=== PATIENT | female | born 1950 | race Caucasian/White ===

== ENCOUNTER → 2016-09-15 | Outpatient (CLI) | payer MEDICARE, OTHER ==
[~2016-09-15] MED LIST: ASPI-482 PO; CITA20TA9 PO; DUONEB; HYDR12.58 PO; LORA10TA3 PO; MELO15TA23 PO; OMEP20CA9 PO; PROAIR HFA8.5 GM INH; PROP40TA PO; SIMV40TA3 PO
--- NOTE | 2016-09-15 12:51 | KCIC ---
EXAM: Bilateral screening mammogram. HISTORY: 66-year-old female presents for screening mammography. TECHNIQUE: Full-field digital craniocaudal and mediolateral oblique views of both breasts are obtained for evaluation. Computer aided detection with Crediter[employer] software version 9.3 was applied. COMPARISON: 04/08/2015 and 01/10/2014 BREAST PARENCHYMAL DENSITY: Level B - Scattered fibroglandular densities. FINDINGS: There is a small focal asymmetry within the retroareolar aspect of the left breast on the craniocaudal projection, without a correlate on the mediolateral oblique projection. There is nodularity within right breast which is stable compared to multiple studies. There are a few benign calcifications within both breasts. IMPRESSION: BI-RADS Category 0: Additional imaging needed. RECOMMENDATION: Further evaluation with a spot compression craniocaudal view and full field true lateral view of the left breast assess focal asymmetry is recommended. Sonographic imaging can also be performed if team indicated based on initial imaging findings. The patient will be contacted to return for additional imaging. If your mammogram demonstrates that you have dense breast tissue, which could hide abnormalities, and if you have other risk factors for breast cancer that have been identified, you might benefit from supplemental screening tests that may be suggested by your ordering physician. Dense breast tissue, in and of itself, is a relatively common condition. This information is not provided to cause undue concern, but rather to raise your awareness and to promote discussion with your physician regarding the presence of other risk factors, in addition to dense breast tissue. A report of your mammography results will be sent to you and your physician. You should contact your physician if you have any questions or concerns regarding this report. Mammography is a sensitive method for finding small breast cancers, but it does not detect them all and is not a substitute for careful clinical examination. A negative mammogram does not negate a clinically suspicious finding and should not result in delay in biopsying a clinically suspicious abnormality. PQRS compliance statement - Patient information was entered into a reminder system with a target due date for the next mammogram. "Our facility is accredited by the [employer] Mammography Program." Electronically signed by: Ramya Oneill MD (09/15/2016 12:47 PM) [id number]
== END | disposition home or self-care (01) ==
LOC: KCIC MAMMO 12:16
PROVIDERS: ATTEND Internal Medicine
DX: Z12.31 Encounter for screening mammogram for malignant neoplasm of breast (principal)
CPT/HCPCS: G0202; 77067

== ENCOUNTER → 2016-09-29 | Outpatient (CLI) | payer MEDICARE, OTHER ==
--- NOTE | 2016-10-13 15:43 | KCIC ---
DATE: 09/29/2016. EXAM: 1. DIGITAL DIAGNOSTIC LT. 2. LEFT BREAST ULTRASOUND. HISTORY: Density on mammographic screening. Additional views and sonography are requested. COMPARISON: 09/15/2016, 04/08/2015, 01/09/2014. This study was interpreted with the benefit of Computerized Aided Detection (CAD ). FINDINGS: The breast parenchyma shows scattered fibroglandular densities. The density of concern resolves to a parenchymal density on the CC spot compression image. It persists on the MLO projection. On today's sonography of the lateral subareolar region, there is no correlate for the mammographic density. There is no suspicious finding. BI-RADS CATEGORY: 3 PROBABLY BENIGN FINDING(S)-SHORT INTERVAL FOLLOW-UP SUGGESTED. RECOMMENDED FOLLOW-UP: 1. The finding of concern appears represent a parenchymal island and has no sonographic correlate. Six-month follow-up is recommended to confirm stability. 2. 6M 6 MONTH FOLLOW-UP. PQRS compliance statement: Patient information was entered into a reminder system with a target due date 04/01/2017 for the next mammogram. Mammography is a sensitive method for finding small breast cancers, but it does not detect them all and is not a substitute for careful clinical examination. A negative mammogram does not negate a clinically suspicious finding and should not result in delay in biopsying a clinically suspicious abnormality. "Our facility is accredited by the [employer] Mammography Program." MTDD
== END ==
LOC: KCIC MAMMO 08:30
PROVIDERS: ATTEND Internal Medicine
DX: N63 Unspecified lump in breast (principal)
CPT/HCPCS: 76641; G0206; 77065

== ENCOUNTER → 2017-04-03 | Outpatient (CLI) | payer OTHER | END | disposition home or self-care (01) | LOC: KCIC MAMMO 09:38 | DX: N64.89 Other specified disorders of breast (principal); R92.8 Other abnormal and inconclusive findings on diagnostic imaging of breast (principal) | CPT/HCPCS: 77065; G0279 ==

== ENCOUNTER → 2018-04-17 | Outpatient (CLI) | payer OTHER ==
[~2018-04-17] MED LIST changes: +ALBU2.5V8 INH; +OMEP20CA10 PO; -OMEP20CA9 PO; -PROAIR HFA8.5 GM INH
--- NOTE | 2018-04-17 15:47 | KCIC ---
Bilateral digital screening mammograms with 3-D tomosynthesis: Reason for examination: Routine screening. Comparison is made to previous studies dated back to 04/08/2015. Bilateral mammograms in CC and oblique projections were obtained with 2-D imaging and 3-D tomosynthesis imaging on a Siemens Inspiration unit and reviewed on the workstation. Interpretation was made with the benefit of CAD. The skin and nipples show no abnormalities. No abnormal axillary lymph nodes are seen. The breast parenchyma shows scattered fatty and fibroglandular density. (Breast density: Category B.) There appears to be interval improvement of a small nodular density seen anteriorly in the left breast. There is however continued presence of a small nodule anteriorly at the 11:00 position in the right breast as well as an additional tiny nodule at the 12:00 position of the right breast which are stable. There are no new dominant masses, suspicious calcifications or architectural distortion. Benign calcifications are present. Impression: No evidence of malignancy. Recommend routine screening. BI-RAD Category 2: Benign. "Our facility is accredited by the [employer] Mammography [employer]." This patient's information has been entered into a reminder system for the patient to be notified with the results of her examination and a target date for the next mammogram. Electronically signed by: Kelly Grier MD (04/17/2018 3:42 PM) [id number]
== END | disposition home or self-care (01) ==
LOC: KCIC MAMMO 10:14
PROVIDERS: ATTEND Internal Medicine
DX: Z12.31 Encounter for screening mammogram for malignant neoplasm of breast (principal)
CPT/HCPCS: 77063; 77067

== ENCOUNTER → 2019-04-22 | Outpatient (CLI) | payer MEDICARE, OTHER ==
[~2019-04-22] MED LIST changes: -OMEP20CA10 PO; +OMEP20CA16 PO; +SIMV40TA18 PO; -SIMV40TA3 PO
--- NOTE | 2019-04-22 16:14 | KCIC ---
Bilateral digital screening mammograms with 3-D tomosynthesis: Reason for examination: Routine screening. Comparison is made to previous studies dated back to 09/15/2016. Bilateral mammograms in CC and oblique projections were obtained with 2-D imaging and 3-D tomosynthesis imaging on a Siemens Inspiration unit and reviewed on the workstation. Interpretation was made with the benefit of CAD. The skin and nipples show no abnormalities. No abnormal axillary lymph nodes are seen. The breast parenchyma is predominantly fatty. (Breast density: Category A.) There continues to be a small nodular density in the upper outer quadrant of the right breast anteriorly which is stable. There also continue to be several small parenchymal densities bilaterally which are stable. There are no new dominant masses, suspicious calcifications or architectural distortion. Benign calcifications are present. Impression: No evidence of malignancy. Recommend routine screening. BI-RAD Category 2: Benign. "Our facility is accredited by the [employer] Mammography Program." This patient's information has been entered into a reminder system for the patient to be notified with the results of her examination and a target date for the next mammogram. Electronically signed by: Kelly Grier MD (04/22/2019 4:11 PM) [id number]
== END | disposition home or self-care (01) ==
LOC: KCIC MAMMO 14:19
PROVIDERS: ATTEND Internal Medicine
DX: Z12.31 Encounter for screening mammogram for malignant neoplasm of breast (principal); N64.89 Other specified disorders of breast
CPT/HCPCS: 77063; 77067

== ENCOUNTER → 2020-04-23 | Outpatient (CLI) | payer MEDICARE ==
--- NOTE | 2020-04-23 12:51 | KCIC ---
EXAM: Bilateral digital screening mammogram with tomosynthesis. HISTORY: 69-year-old female presents for screening mammography. TECHNIQUE: Full-field digital craniocaudal and mediolateral oblique 2D and 3D tomosynthesis images of both breasts are obtained for evaluation. Computer aided detection was applied. COMPARISON: 04/22/2019 and 04/17/2018 BREAST PARENCHYMAL DENSITY: Level B - Scattered fibroglandular densities. FINDINGS: There is no new suspicious mass, microcalcification or region of architectural distortion. There are stable areas of asymmetry and nodularity within both breasts. There are a few benign calcif ications. IMPRESSION: BI-RADS Category 2: Benign finding(s). RECOMMENDATION: Annual mammography is recommended. If your mammogram demonstrates that you have dense breast tissue, which could hide abnormalities, and if you have other risk factors for breast cancer that have been identified, you might benefit from s upplemental screening tests that may be suggested by your ordering physician. Dense breast tissue, i n and of itself, is a relatively common condition. This information is not provided to cause undue c oncern, but rather to raise your awareness and to promote discussion with your physician regarding th e presence of other risk factors, in addition to dense breast tissue. A report of your mammography re sults will be sent to you and your physician. You should contact your physician if you have any ques tions or concerns regarding this report. Mammography is a sensitive method for finding small breast cancers, but it does not detect them all a nd is not a substitute for careful clinical examination. A negative mammogram does not negate a clin ically suspicious finding and should not result in delay in biopsying a clinically suspicious abnorma lity. PQRS compliance statement - Patient information was entered into a reminder system with a target due date for the next mammogram. "Our facility is accredited by the [employer] Mammography Program." Electronically signed by: Ramya Oneill MD (04/23/2020 12:49 PM) [facility]
== END ==
LOC: KCIC MAMMO 10:41
PROVIDERS: ATTEND Internal Medicine
DX: Z12.31 Encounter for screening mammogram for malignant neoplasm of breast (principal)
CPT/HCPCS: 77063; 77067

== ENCOUNTER → 2020-07-16 | Outpatient (CLI) | payer MEDICARE ==
[~2020-07-16] MED LIST changes: +CETI10TA16 PO; +CRESTOR5 MG PO; +GABA-585 PO; +METF500T16 PO
--- NOTE | 2020-07-16 13:13 | PDOC1 ---
INITIAL PAIN CONSULT DATE OF SERVICE: DOS: DATE: 07/16/20 TIME: 13:04 CHIEF COMPLAINT: Chief Complaint: Low back and left lower extremity pain. HISTORY OF PRESENT ILLNESS: 69-year-old female presents history of pain low back left lower extremity for "many years" patient reports over the past year or so the pain is getting worse and more noticeable with walking standing changing position especially sitting for prolonged periods and standing for prolonged periods greater than 30 minutes or so. Patient reports the pain is in the low back radiating the lower extremity the posterior gluteus on the left left posterior thigh posterior calf to the ankle worse with standing walking changing positions. Patient reports that sharp and shooting in the leg intermittent intensity but always present Changes during the day with activity as well can be aching and cold and cramping in the low back and the left leg patient reports no symptoms on the right leg reports no loss of motor function but significant fatigability when she is walking and some loss of balance with walking as well. Patient reports occasionally wakes her from sleep at night most nights does not affect her bowel bladder control does affect her ability to walk using a cane which she has with her today holding it in her right hand. Patient rates her disability rating 0-10 10 being the worst is an 8 with family responsibilities 10 with recreation and social activity 5 with self-care activity patient reports she has had physical therapy which temporarily decrease the pain but not long-term she has been doing exercises as well is currently taking no specific medications for the pain at this time. PAST MEDICAL HISTORY: PMH: Hypertension, arthritis, diabetes, skin cancer PREVIOUS SURGERIES: Past Surgical Hx: Hysterectomy, colon resection, right rotator cuff repair, skin lesion removal CURRENT MEDICATIONS: Current Meds: Active Scripts Medications Dose Route/Sig Max Daily Dose Days Date Category Gabapentin (Gabapentin) 100 Mg Capsule 100 Mg PO TID 07/16/20 Reported Metformin Hcl 500 Mg Tablet 500 Mg PO DAILY 07/16/20 Reported Cetirizine Hcl 10 Mg Tablet 1 Tab PO DAILY 07/16/20 Reported Crestor (Rosuvastatin Calcium) 5 Mg Tablet 20 Mg PO HS 07/16/20 Reported Aspir 81 (Aspirin) 81 Mg Tablet.dr 81 Mg PO 01/23/14 Reported Meloxicam 15 Mg Tablet 15 Mg PO DAILY 01/23/14 Reported [Duoneb] 01/23/14 Reported Celexa (Citalopram Hydrobromide) 20 Mg Tablet 20 Mg PO DAILY 01/23/14 Reported Propranolol Hcl 40 Mg Tablet 40 Mg PO DAILY 01/23/14 Reported Hydrochlorothiazide Tablet (Hydrochlorothiazide) 12.5 Mg Tablet 12.5 Mg PO DAILY 01/23/14 Reported ALLERGIES; Allergies: Coded Allergies: No Known Drug Allergies (Unverified , 01/23/14) FAMILY HISTORY: Family Hx: Heart disease and cancers SOCIAL HISTORY: Social Hx: Patient does not drink alcohol does not smoke or use any illegal illicit recreational drugs is lives with her spouse and 1 daughter who lives locally in [place], [place] REVIEW OF SYSTEMS: ROS: Positive for those items mentioned in history of present illness, all systems are reviewed, otherwise negative ,and are complete full and well-documented on patient's chart. PHYSICAL EXAM: VS: Blood pressure is 156/102 pulse 66 respirations 16 temperature 98.1 F height 5 feet 3 inches weight is 210 pounds PE: PHYSICAL EXAMINATION: GENERAL: The patient is awake, alert, oriented, appropriate, very pleasant demeanor HEENT: Shows normocephalic, atraumatic. Extraocular movements are intact and symmetrical. Oral cavity: Mucous membranes moist and pink. NECK: Shows anterior throat supple without palpable lymphadenopathy noted. Swallow reflex symmetrical. CHEST: Shows normal on inspection. Breath sounds are clear bilaterally, no rales rhonchi or wheezes auscultated. HEART: Shows S1, S2 clear. No murmurs auscultated. ABDOMEN: Soft, nontender, nondistended, obese. No palpable organomegaly is noted. No rebound or guarding demonstrated. BACK: Shows spine grossly in the midline. Normal-appearing cervical lordotic curvature. There is slightly increased thoracic kyphosis, some minor flattening of the lumbar lordotic curvature. Lumbar paraspinous muscles show symmetrical on inspection, on palpation shows some moderate tenderness diffusely throughout the upper, middle and lower distribution of the paraspinous muscles bilaterally and also into the lower thoracic paraspinous musculature, firm and tender, but without specific trigger points, without radiation of pain. The patient has good rotational motion of the lumbar spine, both laterally as well as extension and flexion without significant difficulty. No tenderness over the spinous processes, sacrum or sacroiliac regions. EXTREMITIES: Lower extremities show deep tendon reflexes 2+ in the patellar and tendo calcaneustendons. Motor exam is 5 on a scale of 5 with right dorsiflexion, extension, quadriceps and hamstring flexion and 4/5 on the left. Peripheral pulses are 1 posterior tibial. No peripheral edema is noted bilater ally. Lower extremities are warm and dry to touch, equal in color and appearance. Straight leg raise noted to be negative on the right, left side is positive at approximate 40 degrees, decreased with knee flexion. Gaenslen's and Jonathan's maneuvers are negative bilaterally. The patient is able to stand, stand on her toes without significant difficulty or loss of balance walks with the cane in her right hand and is slightly favoring her left lower extremity with ambulating. SKIN: Shows warm and dry, good turgor. No edema. No sores, rashes or bruising throughout. No IMPRESSION: Impression: 69-year-old female with long history low back left lower extremity pain worse over the past year in a radicular fashion. MRI scan lumbar spine as noted Arthritis Hypertension Diabetes Plan: Options were discussed with patient including conservative medical [place] physical therapies and interventional techniques. Patient like to pursue most conservative course at this time and we will recommend increasing her gabapentin from 200 to 300 mg 3 times daily. Patient is given new prescription for this and instructions side effects beware with the medication. If not sniffily improved patient will return and we will plan on lumbar epidural st eroid injection at that time. Patient will continue with stretching strength exercises in the meantime as well. PAULA SHER MD July 16, 2020 13:13
== END | disposition home or self-care (01) ==
LOC: PNCL 09:23
PROVIDERS: ATTEND Anesthesiology
DX: M54.5 Low back pain (principal); M79.605 Pain in left leg; I10 Essential (primary) hypertension; M19.90 Unspecified osteoarthritis, unspecified site; E11.9 Type 2 diabetes mellitus without complications; Z85.828 Personal history of other malignant neoplasm of skin; Z90.710 Acquired absence of both cervix and uterus; Z98.890 Other specified postprocedural states; Z79.82 Long term (current) use of aspirin; Z79.84 Long term (current) use of oral hypoglycemic drugs; Z79.899 Other long term (current) drug therapy; Z82.49 Family history of ischemic heart disease and other diseases of the circulatory system
CPT/HCPCS: G0463